=== PATIENT | female | born 1995 | race Caucasian/White ===

== ENCOUNTER 2025-04-19 10:07 | Outpatient (CLI) | payer OTHER, SELFPAY ==
--- NOTE | 2025-04-19 10:15 | CRLHL7_ITS ---
For Patients: As a result of the Cures Act, medical imaging exams and procedure reports are released immediately into your electronic medical record. You may view this report before your referring provider. If you have questions, please contact your health care provider. OB ULTRASOUND INDICATION: Dating and viability. TECHNIQUE: Real time grayscale imaging of the fetus was performed. Transvaginal. Transvaginal imaging performed to better demonstrate the endometrium and ovaries. LMP: 02/11/2025. MERE by LMP: 11/18/2025. GA: 9 w, 4 d. Previous US: No. CRL: 1.8 cm. 8 w 2 d. MERE: 11/27/2025. FHR: 173 BPM. Gestational sac: 3.5 cm. Appears within normal limits. Yolk sac: 4.3 mm. Appears within normal limits. Right ovary: N/V. Left ovary: 4.0 x 1.8 x 3.1 cm. IMPRESSION: 1. Single living intrauterine measures 8 weeks 2 days with sonographic due date 11/27/2025. 2. Subchorionic hemorrhage measures 3.2 x 1.0 x 2.3 cm. Thien John M.D. Diagnostic Radiologist [email or web address] KAIN/mo hassan/Dictated by: Thien John MD @ 04/19/2025 12:23:00 PM (Electronically Signed)
== END 2025-04-19 10:08 | disposition home or self-care (01) ==
LOC: US 10:09
PROVIDERS: Visit Provider Registered Nurse
DX: O20.9 Hemorrhage in early pregnancy, unspecified (principal); Z3A.08 8 weeks gestation of pregnancy; O26.891 Other specified pregnancy related conditions, first trimester; N89.8 Other specified noninflammatory disorders of vagina; Z3A.09 9 weeks gestation of pregnancy
CPT/HCPCS: 76817

== ENCOUNTER 2025-04-19 11:11 | Outpatient (CLI) | payer OTHER, SELFPAY ==
[2025-04-19 16:59] LABS: Chlamydia DNA Amplified* NOT DETECTED (No Detected); GC DNA Amplified* NOT DETECTED (No Detected)
[2025-04-22 17:35] LABS: HPV Source Cervix
[2025-04-25 07:54] LABS: Pap Test Digital Imaging Done
== END 2025-04-19 11:12 | disposition home or self-care (01) ==
PROVIDERS: Visit Provider Registered Nurse
DX: O26.891 Other specified pregnancy related conditions, first trimester (principal); N89.8 Other specified noninflammatory disorders of vagina; Z3A.09 9 weeks gestation of pregnancy
CPT/HCPCS: 76817; 82565; 82570; 83020; 83021; 84156; 84450; 84460; 84520; 85660; 86592; 86703; 86704; 86706; 86762; 86787; 86803; 86850; 86900; 86901; 87086; 87340; 87491; 87591; 87624; 87625; 88141; 88142; 88175

== ENCOUNTER 2025-06-05 19:21 | Emergency (ER) | payer OTHER, SELFPAY ==
--- OUTSIDE RECORDS SUMMARY | 2013-07-30 04:02 | XMS_ITS | Continuity of Care Document ---
[facility] Address [address] [place] [address] Phone Care Team Providers Care Teleservices Representative Name Role Phone Anita Steven Unavailable Unavailable Allergies, Adverse Reactions, Alerts Substance Reaction Status Criticality No Known allergies Advance Directives Directive Yes / No Effective Date File Name No Information Encounters Encounter Description Practice Location Reason(s) For Visit Diagnoses Date Provider Encounter Disposition [facility], [address] [facility], [place], [id number], [place] tel:[phone] [facility] No Information 0- 4 Habafy Anita. [address] [facility], [place], [id number] , [place]. tel:[phone] [facility] [facility], [place], [id number], [place] tel:[phone] [facility] blood work (chief complaint) OVERWEIGHTInfluen za VaccineAcanthosis nigricans 2-201 3 Habafy Anita. [address] [facility], [place], [id number] , [place]. tel:[phone] [facility], [address] [facility], [place], [id number], [place] tel:[phone] [facility] Well child - 14 Years (chief complaint) ROUTINE OR CHILD HEALTH CHECKOverweightAc anthosis nigricansAllergic rhinitisBenign cyst of skinROUTINE INFANT OR CHILD HEALTH CHECK 0 8-201 3 Habafy Anita. [address] [facility], [place], [id number] , [place]. tel:[phone] Family History Family Member Type Diagnosis Age At Onset Problem (finding) No family history of Di abetes mellitus Problem (finding) No family hist ory of Sudden syndrome Problem (finding) No family history of Hy pertension Problem (finding) No family history of Me ntal retardation Problem (finding) No family history of Th yroid disease Problem (finding) No family history of Mi graines Problem (finding) No family history of Le arning disability Problem (finding) No family history of Ec zema Problem (finding) Family history of Aller gies Problem (finding) Family history of raise d blood lipids Problem (finding) No family history of De afness Problem (finding) No family history of De pression Problem (finding) No family history of Se izure disorder Problem (finding) No family hist ory of Coronary artery disease Problem (finding) Family history of asthm a Problem (finding) No family hist ory of Developmental dislocation of hip Problem (finding) No family history of Ge netic disease Problem (finding) No family history of He moglobinopathy Problem (finding) No family history of St rabismus Problem (finding) No family history of De velopmental delay Problem (finding) No family history of Ca ncer Problem (finding) No family history of Sc oliosis Problem (finding) No family history of bi rth defects Problem (finding) Family history of Obesi ty Immunizations Vaccine Date Status Comments Flu (split) (3 yrs or older) preservative free administered Note: 01/12/13 ; Sour ce: New Immunization Record MCV4 administered Source: New Imm unization Record HPV (quadrivalent) administered Source: N ew Immunization Record HPV (quadrivalent) administered Source: N ew Immunization Record Tdap administered Source: New Imm unization Record HPV (quadrivalent) administered Source: N ew Immunization Record varicella administered Source: New Imm unization Record hep A (ped/adol, 2 dose) administered Rukhsana rce: New Immunization Record hep B (ped/adol, 3 dose) administered Rukhsana rce: New Immunization Record hep A (ped/adol, 2 dose) administered Rukhsana rce: New Immunization Record polio, inactivated (IPV) administered Rukhsana rce: New Immunization Record MMR administered Source: New Imm unization Record hep B (ped/adol, 3 dose) administered Rukhsana rce: New Immunization Record DTaP administered Source: New Imm unization Record varicella administered Source: New Imm unization Record MMR administered Source: New Imm unization Record HIB - unspecified administered Source: Ne w Immunization Record hep B (ped/adol, 3 dose) administered Rukhsana rce: New Immunization Record DTaP administered Source: New Imm unization Record polio, inactivated (IPV) administered Rukhsana rce: New Immunization Record polio, inactivated (IPV) administered Rukhsana rce: New Immunization Record DTaP administered Source: New Imm unization Record polio, inactivated (IPV) administered Rukhsana rce: New Immunization Record DTaP administered Source: New Imm unization Record polio, inactivated (IPV) administered Rukhsana rce: New Immunization Record DTaP administered Source: New Imm unization Record Payers Payer name Insurance type Identifiers Authorization(s) Com ments No Information Social History Type Description Quantity Date Captured Comments Sex Female Smoking Status No Information Current Gender Female (finding) Chief Complaint And Reason For Visit No Information History Of Present Illness Encounter Date Complaint History Of Prese nt Illness blood work Pt is here for [employer] work because it couldn't be done at her last [facility] in October 2012 because she didn't have any insurance. Now pt has medical insurance.Pt is doing well. No concerns. Pt gained 16 lbs since her last visit in October 2012. Pt doesn't know how she gained the weight.Change in the household: mom has been spending all her time (night and weekend) caring for her sister in law who has cancer. Pt stays home alone most of the time. Pt watches 4-6 hrs of tv and computer a day. Instructions Date Instruction Additional Alejandror jessy Age appropriate diet discussed R elated to routine /child health checkup Age appropriate safety discussed Related to routine infant/child health checkup Age appropriate anti cipatory guidance discussed Related to routine /child health checkup Assessments Type Assessment Date No Information
--- OUTSIDE RECORDS SUMMARY | 2013-07-30 04:02 | XMS_ITS | Continuity of Care Document ---
Author Organization [facility] Address [address] [place] [address] Phone Care Team Providers Care Headwaiter/Headwaitress Name Role Phone Anita Steven Unavailable Unavailable Allergies, Adverse Reactions, Alerts Substance Reaction Status Criticality No Known allergies Advance Directives Directive Yes / No Effective Date File Name No Information Encounters Encounter Description Practice Location Reason(s) For Visit Diagnoses Date Provider Encounter Disposition [facility], [address] [facility], [place], [id number], [place] tel:[phone] [facility] No Information 0- 4 Habafy Anita. [address] [facility], [place], [id number] , [place]. tel:[phone] [facility] [facility], [place], [id number], [place] tel:[phone] [facility] blood work (chief complaint) OVERWEIGHTInfluen za VaccineAcanthosis nigricans 2-201 3 Habafy Anita. [address] [facility], [place], [id number] , [place]. tel:[phone] [facility], [address] [facility] [place], [place], [id number], [place] tel:[phone] [facility] Well child - 14 Years (chief complaint) ROUTINE OR CHILD HEALTH CHECKOverweightAc anthosis nigricansAllergic rhinitisBenign cyst of skinROUTINE INFANT OR CHILD HEALTH CHECK 0 8-201 3 Habafy Anita. [address] [facility], [place], [id number] , [place]. tel:[phone] Family History Family Member Type Diagnosis Age At Onset Problem (finding) Family history of Obesi ty Problem (finding) No family history of bi rth defects Problem (finding) No family history of Sc oliosis Problem (finding) No family history of Ca ncer Problem (finding) No family history of De velopmental delay Problem (finding) No family history of Di abetes mellitus Problem (finding) No family hist ory of Sudden infant syndrome Problem (finding) No family history of [...] (finding) No family history of St rabismus Immunizations Vaccine Date Status Comments Flu (split) [...] Illness blood work Pt is here for [employer] work because it couldn't be done at her last [facility] in October 2012 because she didn't have [...] computer a day. Instructions Date Instruction Additional Heydi jiménez Age appropriate anti cipatory guidance discussed Related to routine /child health checkup Age appropriate safety discussed Related to routine infant/child health checkup Age appropriate diet discussed R elated to routine /child health checkup Assessments Type Assessment Date No Information
[2025-06-05 19:28] VITALS: BP 127/74; PULSE 86; RESP 16; TEMP 36.9; O2SAT 96; BMI 37.6
--- NOTE | 2025-06-05 19:49 | ED.GENADULT ---
HPI - General Adult General Chief complaint: Extremity Pain/Injury, Lower Stated complaint: Slipped on Ice 15 wk preg Time Seen by Provider: 06/05/25 19:29 Source: patient Mode of arrival: ambulatory Limitations: no limitations History of Present Illness HPI narrative: 29-year-old female at 15 weeks gestation presents today after falling on the ice. She complains of right knee pain. Patient is quite concerned that falling on her knees may have affected the baby somehow. She is here for an evaluation of the baby as well. She can walk without difficulty but states that her right knee is sore. The fall occurred approximately 3 hours ago. She denies any abdominal pain, no vaginal discharge. No trauma to the abdomen. Related Data Home Medications ?Medication ?Instructions ?Recorded ?Confirmed docosahexaenoic acid 200 mg mg PO 04/19/25 05/15/25 capsule ( DHA) Allergies Allergy/AdvReac Type Severity Reaction Status Date / Time No Known Drug Allergies Allergy Verified 05/15/25 09:10 Review of Systems Status of ROS: Reports: 6 or more systems reviewed and unremarkable except as noted in History and below PFSH PFSH Surgical History History of tonsillectomy ?Z90.89 - Acquired absence of other organs (ICD-10) Social History Narrative: Lives in [place]. 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 Exam Narrative: Exam Narrative: Overweight, well-developed patient in no acute distress. Alert and oriented. Answers questions appropriately. Mood and affect are appropriate. Thoughts are goal oriented and rational. No tangential or magical thinking noted. Patient speaks in full sentences without needing to catch her breath. Patient does not appear ill or toxic. Blood pressure 127/74. HEENT: Normocephalic atraumatic. Pupils are equally round reactive to light. Extraocular muscles are intact. Conjunctivae are moist without any icterus noted. Moist mucous membranes. Cardiovascular: Heart is regular rate and rhythm . Lungs: Clear to auscultation bilaterally. Abdomen: Soft and nontender nondistended with normal bowel sounds. Extremities: Bilateral lower extremities are without edema. Patient has a small superficial abrasion of the right knee. There is no joint effusion. No pain with compression of the patella. She has full range of motion without discomfort. Skin: Well perfused. Const: Vital Signs, click to edit/add: Vital Signs - 24 hr 06/05/25 19:28 Temperature 98.4 F Pulse Rate [Pulse Oximeter] 86 Respiratory Rate 16 Blood Pressure [Ri ght Upper Arm] 127/74 Pulse Oximetry 96 Oxygen Delivery Me thod Room Air Course Course ED Course: Were not able to find a heartbeat with the Doppler therefore did go ahead and do a bedside ultrasound which showed a heartbeat of 140 beats per minute. Vital Signs Vital signs: Initial Vital Signs Temperature 98.4 F 06/05/25 19:28 Temperature Source Temporal Artery Scan 06/05/25 19:28 Pulse Rate 86 06/05/25 19:28 Respiratory Rate 16 06/05/25 19:28 Blood Pressure 127/74 06/05/25 19:28 Blood Pressure Mean 91 06/05/25 19:28 Blood Pressure Position High-Fowlers 06/05/25 19:28 Pulse Oximetry 96 06/05/25 19:28 Oxygen Delivery Method Room Air 06/05/25 19:28 Vital Signs Temperature 98.4 F 06/05/25 19:28 Pulse Rate 86 06/05/25 19:28 Respiratory Rate 16 06/05/25 19:28 Blood Pressure 127/74 06/05/25 19:28 Pulse Oximetry 96 06/05/25 19:28 Oxygen Delivery Method Room Air 06/05/25 19:28 Temperature 98.4 F 06/05/25 19:28 Pulse Rate 86 06/05/25 19:28 Respiratory Rate 16 06/05/25 19:28 Blood Pressure 127/74 06/05/25 19:28 Pulse Oximetry 96 06/05/25 19:28 Oxygen Delivery Method Room Air 06/05/25 19:28 Medical Decision Making MDM Narrative Medical decision making narrative: 29-year-old female status post fall on the ice with right sore knee. We discussed symptomatic treatment. Patient has a follow-up appoint with OBGYN next week, encouraged to keep that appointment. Discharge Plan Discharge Clinical Impression: Fall, Acute knee pain Patient Disposition: Home, Self-Care Condition: Stable Additional Instructions: Okay to use ice to the knee as needed. Do not apply ice directly to skin and do not use for more than 20 minutes at a time. Follow-up with OBGYN as scheduled. Prescriptions: No Action DHA 200 mg capsule PO Follow Up/Referrals: Provider,Not a Local [Primary Care Provider, Family Practice] Stand Alone Forms: [place] [employer] Info Instructions
== END 2025-06-05 20:02 | disposition home or self-care (01) ==
LOC: ED 19:55
PROVIDERS: Emergency Provider Family Medicine
DX: O9A.212 Injury, poisoning and certain other consequences of external causes complicating pregnancy, second trimester (principal); S80.211A Abrasion, right knee, initial encounter; Z3A.15 15 weeks gestation of pregnancy; W00.0XXA Fall on same level due to ice and snow, initial encounter; Y93.01 Activity, walking, marching and hiking
CPT/HCPCS: 99283; 99284